=== PATIENT | female | born 1970 | race Caucasian/White ===

== ENCOUNTER 2023-10-20 07:30 | Emergency (ER) | payer BC, SELFPAY ==
[2023-10-20 07:31] VITALS: BP 116/59
--- NOTE | 2023-10-20 08:30 | ED.GENMED ---
History of Present Illness
General
Chief Complaint: Headache
Source: patient
Exam Limitations: none
Time Seen by Provider: 10/20/23 08:24
Nursing documentation reviewed up to this point in time: agreed with
Travel History
Have you had any contact with someone who has COVID-19?: No
Do you have any symptoms of coronavirus? Fever > 100 degrees, chills, cough, shortness of breath, sore throat, loss of taste or smell, muscle aches, or headache?: No
History of Present Illness
History of Present Illness:
53-year-old female with history of bariatric surgery, she has had shingles of the right forehead 4 years ago presents stating she started with shooting pains in the right parietal scalp yesterday at 4:00 while working on her computer at work. She
describes shooting pains lasting 20 to 30 seconds which occurred 7 times since then. She states the episodes are getting longer lately lasting 1 minute. She denies recent trauma. She is not anticoagulated. She is not immunocompromise. She
denies change in vision. She denies N/V. She has 'a little pressure' in the right ear. She feels well otherwise.
Past History
Past History
ED Past Medical History: None
ED Past Surgical History: None
Social History
Tobacco: Non-smoker
Alcohol: Occasional
Personal:
Living: with family
Employment: Employed
Review of Systems
Review of Systems
Allergies reviewed?: Yes
All Other Systems: ROS reviewed and negative except as documented in HPI and ROS
Constitutional: Denies fever or chills
EENT: Reports other (Mild pressure in right ear); Denies sore throat
Respiratory: Reports no symptoms
Cardiac: Reports palpitations
ABD/GI: Reports no symptoms
: Reports no symptoms
Musculoskeletal: Reports no symptoms
Skin: Denies rash
Neurological: Reports other (Intermittent shooting pain right parietal scalp); Denies dizzy, headache, weakness or numbness
Phy Exam
Physical Exam
Physical Exam:
GENERAL: No acute distress. A&Ox3.
CONSTITUTIONAL: Afebrile.
EYES: PERRL, conjunctivae normal
Neck: Supple
ENMT: moist mucus membranes, Pharynx nl, TMs normal
RESPIRATORY: Regular respirations, nonlabored, lungs clear.
CARDIOVASCULAR: Regular rate and rhythm, no murmurs, no rubs.
GI: Soft, nontender, normal BS
MUSCULOSKELETAL: Moves with ease. Well perfused.
SKIN: Warm, dry, pink, skin intact scalp, no visible rash of the scalp, nontender to palpation
PSYCH: Normal mood and affect. Well kept, interactive and appropriate
NEUROLOGIC: Awake, alert and oriented. No focal neurological deficits
Course
Vital Signs
Initial and Last Documented VS:
Initial Vital Signs
Temp Pulse Resp BP Pulse Ox
98.2 F 72 16 116/59 98
10/20/23 07:31 10/20/23 07:31 10/20/23 07:31 10/20/23 07:31 10/20/23 07:31
Last Documented Vital Signs
Temp Pulse Resp BP Pulse Ox
98.2 F 72 16 108/71 98
10/20/23 07:31 10/20/23 07:31 10/20/23 07:31 10/20/23 09:12 10/20/23 07:31
MDM/Problems Addressed
Differential Diagnosis Includes:
Cephalgia of unknown origin, prodrome of shingles, atypical migraine
MDM/Problems Addressed:
53-year-old female with history of bariatric surgery, she has had shingles of the right forehead 4 years ago presents stating she started with shooting pains in the right parietal scalp yesterday at 4:00 while working on her computer at work. She
describes shooting pains lasting 20 to 30 seconds which occurred 7 times since then. She states the episodes are getting longer lately lasting 1 minute. She denies recent trauma. She is not anticoagulated. She is not immunocompromise. She
denies change in vision. She denies N/V. She has 'a little pressure' in the right ear. She feels well otherwise.
It has been about 4 years since her shingles outbreak, she may be experiencing a prodrome
I sent a prescription for an antiviral to her pharmacy
*Critical Care Note
Total Time (30-74mins, 75-104mins- exclusive of procedures): Not Applicable
ED Attending Note
-
Portions of this chart may have been created with voice recognition software.� Occasional wrong word or��sound alike� substitutions may have occurred due to the inherent limitations of voice recognition software.
Discharge Plan
Departure
Patient Disposition: Home (Routine Discharge)
Date of Disposition: 10/20/23
Time of Disposition: 08:53
Patient with high blood pressure during this ER visit?: No
Condition: Good
Discharge Problem:
Head pain cephalgia
Instructions: Headache, Adult (DC)
Prescriptions:
New
valacyclovir [Valtrex] 1 gram tablet
1,000 mg PO BID Qty: 20 0RF
Referrals:
Your, Doctor [Other] - As needed
Activity Restrictions/Additional Instructions:
As we discussed, I sent a prescription for the antiviral valacyclovir to your pharmacy. Pick it up and start it soon as possible.
Consider getting the shingles vaccine as your chances of getting shingles again increased with time
Interventions
Interventions:
*Risk Screen - Suicide Last Done: 10/20/23 07:31
*General Assessment Last Done: 10/20/23 07:31
*Neglect/Abuse Screening Last Done: 10/20/23 07:31
ED- Fall Risk Assessment Last Done: 10/20/23 08:30
*ED COVID-19 Vaccine History Last Done: 10/20/23 08:24
*Nursing Disposition Last Done: 10/20/23 09:12
ED- Neurological Assessment Last Done: 10/20/23 08:32
Discharge Date and Time
Discharge Date/Time: 10/20/23 09:23
[2023-10-20 09:12] VITALS: BP 108/71
== END 2023-10-20 09:23 | disposition home or self-care (01) ==
LOC: EMR 07:30
PROVIDERS: EMERGENCY PHYSICIAN Emergency Medicine; FAMILY PHYSICIAN Family Medicine
DX: R51.9 Headache, unspecified (principal)
CPT/HCPCS: 99283